=== PATIENT | male | born 1965 | race Hispanic/Latino ===

== ENCOUNTER 2020-07-24 11:08 | Emergency (ER) | payer OTHER ==
--- OUTSIDE RECORDS SUMMARY | 2020-07-24 11:11 | XMS REPORT | Continuity of Care Document ---
:1965 Author Organization [facility] t Address [address] [place] [address] Care Team Providers Name Role Phone Marissa SHIKHA Attending Clinician Doctor Unassigned, Name Attending Clinician Unavailable Singer NORWOOD Attending Clinician Problems This patient has no known problems. Allergies, Adverse Reactions, Alerts This patient has no known allergies or adverse reactions. Medications This patient has no known medications. Procedures This patient has no known procedures. Encounters Start End Encounter Admission Attending Care Care Encounter Source Date/Time Date/Time Type Type Clinicians Facility Department ID 2020-06-30 2020-06-30 Emergency Marissa [facility] [id number] 13:23:00 15:08:00 Tae Doll [id number] [place] [id number] [place] [id number] 2020-06-30 2020-06-30 Orders Doctor KAMARI [id number] 00:00:00 00:00:00 Only Unassigned, PAULIE [id number] Ramona [facility] [id number] 2020-04-25 2020-04-25 Emergency JUSTIN Alanis [id number] 12:26:00 18:11:00 Kam Doll [id number] [place] [id number] [place] [id number] Results This patient has no known results.
[2020-07-24] MEDS ORDERED: ACETAMINOPHEN 500 MG TAB ONE (12:30)
--- NOTE | 2020-07-24 14:01 | RAD REPORT ---
EXAM DESCRIPTION: RAD - Chest Single View - 07/24/2020 1:49 pm CLINICAL HISTORY: Cough;Congestion Chest pain. COMPARISON: No comparisons FINDINGS: Portable technique limits examination quality. Bilateral pulmonary opacities are noted, greatest in the left upper lobe and in the right lung base m ost compatible with multifocal pneumonia. Heart size is upper limit of normal.
[2020-07-24 14:21] LABS: SARS-COV-2 RT PCR POSITIVE (NEGATIVE)
--- NOTE | 2020-07-24 14:36 | ER ---
Nurse's Notes [facility] Name: Michael Cobian Age: 54 yrs Sex: Male : 1965 Arrival Date: 07/24/2020 Time: 11:15 Bed 15 Private MD: Diagnosis: Coronavirus infection, unspecified Presentation: 07/24 11:34 Chief complaint: Patient states: SOB, cough, body aches, fatigue, nausea for 2 week. ll1 Didn't know he had fever. Some nausea. Coronavirus screen: Client denies travel out of the [place] in the last 14 days. congestion, cough unrelated to allergies, fatigue, fever, headache, muscle pain, nausea, Client presents with at least one sign or symptom that may indicate coronavirus-19. Standard/surgical mask placed on the client. Ebola Screen: Patient denies travel to an Ebola-affected area in the 21 days before illness onset. Initial Sepsis Screen: Does the patient meet any 2 criteria? HR > 90 bpm. No. Patient's initial sepsis screen is negative. Does the patient have a suspected source of infection? Yes: Productive cough/pneumonia. Risk Assessment: Do you want to hurt yourself or someone else? Patient reports no desire to harm self or others. Onset of symptoms was July 09, 2020. 11:34 Method Of Arrival: Ambulatory ll1 11:34 Acuity: LAITH 3 ll1 Historical: - Allergies: 11:33 No Known Allergies; ll1 - PMHx: 11:33 epilepsy; ll1 - Immunization history:: Flu vaccine is not up to date. - Social history:: Smoking status: Patient denies any tobacco usage or history of. Screenin:20 Abuse screen: Denies threats or abuse. Denies injuries from another. Nutritional sv screening: No deficits noted. Tuberculosis screening: No symptoms or risk factors identified. Fall Risk None identified. Assessment: 12:20 General: Appears in no apparent distress. uncomfortable, well groomed, well developed, sv Behavior is calm, cooperative, appropriate for age. General: Reports fever for > 3 days, feeling ill for > 3 days, fatigue for >3 days. Pain: Denies pain. Neuro: Level of Consciousness is awake, alert, obeys commands, Oriented to person, place, time, situation, Moves all extremities. Full function Gait is steady. Cardiovascular: Patient's skin is warm and dry. Respiratory: Reports shortness of breath cough that is non-productive, Airway is patent Respiratory effort is even, unlabored, Respiratory pattern is regular, symmetrical. GI: Reports nausea. Derm: Skin is intact, Skin is pink, warm \\T\\ dry. Musculoskeletal: Range of motion: intact in all extremities. 13:24 Reassessment: Patient appears in no apparent distress at this time. No changes from sv previously documented assessment. Patient and/or family updated on plan of care and expected duration. Pain level reassessed. Patient is alert, oriented x 3, equal unlabored respirations, skin warm/dry/pink. 15:00 Reassessment: Patient appears in no apparent distress at this time. No changes from sv previously documented assessment. Patient and/or family updated on plan of care and expected duration. Pain level reassessed. Patient is alert, oriented x 3, equal unlabored respirations, skin warm/dry/pink. Vital Signs: 11:34 BP 129 / 99; Pulse 102; Resp 20; Temp 101.9; Pulse Ox 92% on R/A; Weight 86.18 kg; ll1 Height 5 ft. 6 in. (167.64 cm); Pain 8/10; 13:24 BP 95 / 73; Pulse 97; Resp 18; Temp 101(O); Pulse Ox 96% ; sv 14:16 BP 108 / 90; Pulse 91; Resp 18; Pulse Ox 95% ; sv 15:00 BP 111 / 86; Pulse 92; Resp 18; Pulse Ox 96% ; sv 11:34 Body Mass Index 30.67 (86.18 kg, 167.64 cm) ll1 ED Course: 11:15 Patient arrived in ED. ds1 11:32 Arm band placed on Patient notified of wait time. ll1 11:37 Triage completed. ll1 12:05 Alyssa Aguilar FNP-C is [facility]. kb 12:05 Bear Huerta MD is Attending Physician. kb 12:08 Milena Beckman RN is Primary Nurse. sv 12:20 Patient has correct armband on for positive identification. Bed in low position. Call sv light in reach. Pulse ox on. NIBP on. Door closed. Head of bed elevated. 12:52 Flu Sent. sv 12:52 COVID-19 : Document "Date of Symptom Onset" if Symptomatic. Sent. sv 13:34 X-ray(s) taken. sv 13:49 Chest Single View XRAY In Process Unspecified. EDMS 15:18 No provider procedures requiring assistance completed. Patient did not have IV access iw during this emergency room visit. Administered Medications: 12:20 Drug: Tylenol 1000 mg Route: PO; sv 13:24 Follow up: Response: No adverse reaction sv Outcome: 14:34 Discharge ordered by . vic 15:17 Discharged to home ambulatory. iw 15:17 Condition: good 15:17 Discharge instructions given to patient, Instructed on discharge instructions, follow up and referral plans. Demonstrated understanding of instructions, follow-up care. 15:18 Patient left the ED. iw Signatures: Dispatcher [employer] EDMS Alyssa Aguilar, SPECIAL OFFICER-C SPECIAL OFFICER-Milena Barraza, RN RN Lisa Dumont ds1 Maria L Lehman, SHARIF OLGUIN iw Simona Mae RN RN ll1
--- NOTE | 2020-07-24 14:36 | EDPHYS ---
Physician Documentation [facility] Name: Michael Cobian Age: 54 yrs Sex: Male : 1965 Arrival Date: 07/24/2020 Time: 11:15 Bed 15 Private MD: ED Physician Bear Huerta HPI: 07/24 14:46 This 54 yrs old Male presents to ER via Ambulatory with complaints of kb Breathing Difficulty, Body Aches. 14:46 The patient has not recently seen a physician. kb 14:47 The patient or guardian reports cough, that is intermittent, described as mild, with no kb sputum, flu symptoms, low-grade fever, myalgias, no appetite. Onset: The symptoms/episode began/occurred 3 day(s) ago. Severity of symptoms: At their worst the symptoms were moderate, in the emergency department the symptoms are unchanged. Modifying factors: The symptoms are alleviated by nothing, the symptoms are aggravated by nothing. Associated signs and symptoms: Pertinent positives: fever. The patient has not experienced similar symptoms in the past. Historical: - Allergies: 11:33 No Known Allergies; ll1 - PMHx: 11:33 epilepsy; ll1 - Immunization history:: Flu vaccine is not up to date. - Social history:: Smoking status: Patient denies any tobacco usage or history of. ROS: 14:45 Cardiovascular: Negative for chest pain, palpitations, and edema, Abdomen/GI: Negative kb for abdominal pain, nausea, vomiting, diarrhea, and constipation, MS/Extremity: Negative for injury and deformity, Skin: Negative for injury, rash, and discoloration, Neuro: Negative for headache, weakness, numbness, tingling, and seizure. 14:45 Constitutional: Positive for body aches, chills, fatigue, fever, malaise. 14:45 Respiratory: Positive for cough. Exam: 14:46 Constitutional: This is a well developed, well nourished patient who is awake, alert, kb and in no acute distress. Head/Face: Normocephalic, atraumatic. Respiratory: Respirations even and unlabored. No increased work of breathing, no retractions or nasal flaring. Skin: Warm, dry with normal turgor. Normal color. MS/ Extremity: Pulses equal, no cyanosis. Neurovascular intact. Full, normal range of motion. Neuro: Awake and alert, GCS 15, oriented to person, place, time, and situation. Moves all extremities. Normal gait. Vital Signs: 11:34 BP 129 / 99; Pulse 102; Resp 20; Temp 101.9; Pulse Ox 92% on R/A; Weight 86.18 kg; ll1 Height 5 ft. 6 in. (167.64 cm); Pain 8/10; 13:24 BP 95 / 73; Pulse 97; Resp 18; Temp 101(O); Pulse Ox 96% ; sv 14:16 BP 108 / 90; Pulse 91; Resp 18; Pulse Ox 95% ; sv 15:00 BP 111 / 86; Pulse 92; Resp 18; Pulse Ox 96% ; sv 11:34 Body Mass Index 30.67 (86.18 kg, 167.64 cm) ll1 MDM: 12:05 Patient medically screened. kb 14:45 Data reviewed: vital signs, nurses notes. Data interpreted: Pulse oximetry: on room air kb is 95 %. Interpretation: normal. Counseling: I had a detailed discussion with the patient and/or guardian regarding: the historical points, exam findings, and any diagnostic results supporting the discharge/admit diagnosis, lab results, radiology results, the need for outpatient follow up, a family practitioner, to return to the emergency department if symptoms worsen or persist or if there are any questions or concerns that arise at home. 07/24 12:06 Order name: Flu kb 07/24 12:06 Order name: COVID-19 : Document "Date of Symptom Onset" if Symptomatic. kb 07/24 12:06 Order name: Chest Single View XRAY; Complete Time: 14:01 kb 07/24 14:22 Order name: COVID-19/FLU A+B; Complete Time: 14:22 EDMS Administered Medications: 12:20 Drug: Tylenol 1000 mg Route: PO; sv 13:24 Follow up: Response: No adverse reaction sv Disposition: 15:27 Co-signature as Attending Physician, Bear Huerta MD. rn Disposition: 07/24/20 14:34 Discharged to Home. Impression: Coronavirus infection, unspecified. - Condition is Stable. - Discharge Instructions: Viral Respiratory Infection, [id number], COVID-19. - Medication Reconciliation Form, Thank You Letter, Antibiotic Education, Prescription Opioid Use form. - Follow up: Emergency Department; When: As needed; Reason: Worsening of condition. Follow up: Private Physician; When: 2 - 3 days; Reason: Recheck today's complaints, Continuance of care, Re-evaluation by your physician. Signatures: Dispatcher [employer] EDID Alyssa Aguilar, EXECUTIVE HOUSEKEEPER-C EXECUTIVE HOUSEKEEPER-CkMilena Tong, RN Maria L Howell RN RN iw Nieto, Roman, MD MD rn Lewis, Lynsay, RN RN ll1 Corrections: (The following items were deleted from the chart) 13:18 12:07 CORONAVIRUS ordered. [facility] 13:28 12:07 Influenza Screen (A ordered. [facility] 14:46 14:46 Constitutional: This is a well developed, well nourished patient who is awake, kb alert, and in no acute distress. Head/Face: Normocephalic, atraumatic. Cardiovascular: Regular rate and rhythm with a normal S1 and S2. No gallops, murmurs, or rubs. No pulse deficits. Respiratory: Respirations even and unlabored. No increased work of breathing, no retractions or nasal flaring. Abdomen/GI: Soft, non-tender. No distention Skin: Warm, dry with normal turgor. Normal color. MS/ Extremity: Pulses equal, no cyanosis. Neurovascular intact. Full, normal range of motion. Neuro: Awake and alert, GCS 15, oriented to person, place, time, and situation. Moves all extremities. Normal gait. kb 15:18 14:34 07/24/2020 14:34 Discharged to Home. Impression: Coronavirus infection, iw unspecified. Condition is Stable. Forms are Medication Reconciliation Form, Thank You Letter, Antibiotic Education, Prescription Opioid Use. Follow up: Emergency Department; When: As needed; Reason: Worsening of condition. Follow up: Private Physician; When: 2 - 3 days; Reason: Recheck today's complaints, Continuance of care, Re-evaluation by your physician. kb
[2020-07-24 15:25] VITALS: TEMP 101
[2020-07-24 15:27] VITALS: BP 108/90; O2SAT 95
== END 2020-07-24 15:18 | disposition home or self-care (01) ==
LOC: ER 11:08
DX: U07.1 COVID-19 (principal); G40.909 Epilepsy, unspecified, not intractable, without status epilepticus
CPT/HCPCS: 0240U; 71045; 99284